=== PATIENT | female | born 1990 | race Caucasian/White ===

== ENCOUNTER 2021-05-17 20:06 | Emergency (ER) | payer MEDICAID, OTHER ==
[~2021-05-17] VITALS: Ht 157.5 cm; Wt 46.3 kg
[2021-05-17 20:10] VITALS: BP 131/87
== END 2021-05-18 05:45 | disposition left against medical advice (07) ==
LOC: EDBD 20:06 → ER 20:10
DX: R05.9 Cough, unspecified (principal); R10.9 Unspecified abdominal pain; Z53.21 Procedure and treatment not carried out due to patient leaving prior to being seen by health care provider